=== PATIENT | female | born 1985 | race Caucasian/White ===

== ENCOUNTER 2017-04-01 19:21 | Emergency (ER) | payer OTHER ==
[~2017-04-01] VITALS: Ht 175.2 cm; Wt 87.1 kg
[~2017-04-01 19:21] MED LIST: BACTRIM DS 8001 TA1 PO; BENTYL10 MG PO; CIPROFLOXACIN500 MG PO; CLARITIN10 MG PO; COLACE100 MG PO; DAYPRO600 M1 PO; DELTASONE10 MG PO; DIFLUCAN150 MG PO; DOXYCYCLINE100 MG PO; FLEXERIL5 MG PO; IRON FERROUS S325 MG PO; MEDROL DOSEPAK4 MG PO; MOTRIN,RUFEN800 MG PO; MOTRIN600 MG PO; NKHM; PREDNICOT20 MG PO; PREDNISONE PO; PRENATAL VITAMI1 TAB PO; Percocet 325 MG1 TAB PO; ROBAXIN750 MG PO; VICODIN 5/500 505 MG PO; ZOLOFT100 MG PO
[2017-04-01] MEDS ORDERED: ULTRAM50 MG PO (20:35)
[2017-04-01] MEDS ORDERED: MEDROL DOSEPAK4 MG PO (20:35)
[2017-04-01] MEDS ORDERED: CYCLOBENZAPRINE5 M3 PO (20:35)
[2017-04-01] MEDS ORDERED: ROBAXIN-750750 MG PO (20:41)
== END 2017-04-01 20:40 | disposition home or self-care (01) ==
LOC: ED 19:21
DX: M54.16 Radiculopathy, lumbar region (principal); Z88.0 Allergy status to penicillin

== ENCOUNTER 2017-05-14 12:30 | Emergency (ER) | payer OTHER ==
[~2017-05-14] VITALS: Ht 172.7 cm; Wt 68.0 kg
[~2017-05-14 12:30] MED LIST changes: +CYCLOBENZAPRINE5 M3 PO; +ROBAXIN-750750 MG PO; +ULTRAM50 MG PO
[2017-05-14] MEDS ORDERED: CYCLOBENZAPRINE10 MG PO (13:17)
[2017-05-14] MEDS ORDERED: NAPROSYN500 MG PO (13:17)
[2017-05-14] MEDS ORDERED: MEDROL DOSEPAK4 MG PO (13:17)
== END 2017-05-14 13:22 | disposition home or self-care (01) ==
LOC: ED 12:30
DX: S39.012A Strain of muscle, fascia and tendon of lower back, initial encounter (principal); M54.30 Sciatica, unspecified side; Z88.0 Allergy status to penicillin; X58.XXXA Exposure to other specified factors, initial encounter; Y93.89 Activity, other specified; Y92.89 Other specified places as the place of occurrence of the external cause; Y99.8 Other external cause status

== ENCOUNTER → 2018-02-20 | Outpatient (CLI) | payer OTHER ==
[~2018-02-20] MED LIST changes: +CYCLOBENZAPRINE10 MG PO; +NAPROSYN500 MG PO
== END | disposition home or self-care (01) ==
LOC: US 02-13 16:00
DX: R30.0 Dysuria (principal)

== ENCOUNTER → 2021-03-14 | Outpatient (CLI) | payer OTHER | END | disposition home or self-care (01) | LOC: RAD 14:58 | PROVIDERS: ATTEND Nurse Practitioner Family | DX: M48.07 Spinal stenosis, lumbosacral region (principal); M40.46 Postural lordosis, lumbar region ==

== ENCOUNTER 2021-04-23 10:02 | Emergency (ER) | payer OTHER ==
[~2021-04-23] VITALS: Ht 175.2 cm; Wt 84.8 kg
== END 2021-04-23 10:38 | disposition home or self-care (01) ==
LOC: ED 10:02
DX: S59.901A Unspecified injury of right elbow, initial encounter (principal); Z88.0 Allergy status to penicillin; Z79.899 Other long term (current) drug therapy; W01.0XXA Fall on same level from slipping, tripping and stumbling without subsequent striking against object, initial encounter; Y93.89 Activity, other specified; Y92.89 Other specified places as the place of occurrence of the external cause; Y99.8 Other external cause status

== ENCOUNTER 2022-03-28 07:43 | Emergency (ER) | payer OTHER ==
[~2022-03-28] VITALS: Ht 175.2 cm; Wt 87.1 kg
[2022-03-28] MEDS ORDERED: PREDNISONE50 MG PO (11:08)
[2022-03-28] MEDS ORDERED: NAPROSYN500 MG PO (11:08)
[2022-03-28] MEDS ORDERED: TRAMADOL HCL50 MG PO (11:09)
[2022-03-28] MEDS ORDERED: VALIUM5 MG PO (11:10)
== END 2022-03-28 11:18 | disposition home or self-care (01) ==
LOC: ED 07:43
DX: M54.50 Low back pain, unspecified (principal); Z88.0 Allergy status to penicillin

== ENCOUNTER → 2023-03-27 | Outpatient (CLI) | payer OTHER ==
[~2023-03-27] MED LIST changes: +PREDNISONE50 MG PO; +TRAMADOL HCL50 MG PO; +VALIUM5 MG PO
[2023-03-27 17:16] LABS: BASO % 0.7 % (0.0-1.0); EOS # 0.2 10*3/uL (0.0-0.4); HEMATOCRIT 36.8 % (37.0-47.0); LYMPH # 1.7 10*3/uL (1.3-4.4); MEAN CELL VOLUME 85.2 fl (81.0-99.0); MEAN CORPUSCULAR HGB 29.4 pg (27.0-31.0); MEAN CORPUSCULAR HGB CONC 34.5 g/dl (33.0-37.0); MEAN PLATELET VOLUME 13.4 fl (9.6-12.3); MONO # 0.5 10*3/uL (0.1-1.0); MONO % 7.7 % (3.0-9.0); NEUT # 3.5 10*3/uL (2.3-7.9); NEUT % 57.9 % (47.0-73.0); PLATELET COUNT AUTOMATED 166 10*3/uL (130-400); RED BLOOD COUNT 4.32 10*6/uL (4.10-5.10); RED CELL DISTRI WIDTH 13.1 % (0-14.5)
[2023-03-27 17:42] LABS: ALKALINE PHOSPHATASE 41 U/L (46-116); BUN 13 mg/dl (9-23); CHLORIDE 104 mmol/L (98-107); POTASSIUM 3.5 mmol/L (3.4-5.1); SGPT/ALT 23 U/L (10-49)
== END | disposition home or self-care (01) ==
LOC: LAB 16:49
PROVIDERS: ATTEND Nurse Practitioner Family
DX: J02.9 Acute pharyngitis, unspecified (principal); E16.2 Hypoglycemia, unspecified; E53.8 Deficiency of other specified B group vitamins